=== PATIENT | male | born 2000 | race Caucasian/White ===

== ENCOUNTER 2023-03-29 21:55 | Emergency (ER) | payer OTHER, MEDICAID, SELFPAY ==
[2023-03-29 21:58] VITALS: BP 120/86; PULSE 103; RESP 16; TEMP 36.8; O2SAT 97; BMI 21.0
--- NOTE | 2023-03-29 22:29 | ED_ITS ---
HPI - Nausea/Vomiting/Diarrhea General Chief complaint: Nausea/Vomiting/Diarrhea Stated complaint: VOMITING Time Seen by Provider: 03/29/23 22:23 Source: patient Mode of arrival: ambulance History of Present Illness HPI Narrative: 22-year-old male with a history of substance abuse who is currently in a detox program and receiving injections of Sublocade presents for evaluation of nausea vomiting and constipation. He states he has been vomiting all day and has not had a bowel movement in a week. He was recently seen in [facility] for similar symptoms. He denies any chest pain or shortness of breath. He states he is not really passing gas. Related Data Home Medications Medication Instructions Recorded Confirmed buprenorphine 100 mg/0.5 mL 100 mg subcut .monthly 03/29/23 03/29/23 solution,exten.rel.subcutaneous syringe (Sublocade) Allergies Allergy/AdvReac Type Severity Reaction Status Date / Time amoxicillin Allergy Unknown Verified 03/29/23 22:01 Review of Systems ROS Status of ROS 10 or more systems reviewed and unremarkable except as noted in history and below PFSH PFS Social History Smoking status: Current every day smoker Exam Narrative Exam Narrative: Nurses note and vital signs reviewed and patient is not hypoxic, no active vomiting He is mildly tachycardic with a pulse of 103 General: The patient appears well and in no apparent distress. Patient is resting comfortably on cart. Skin: Warm, dry, no pallor noted. There is no rash noted. Head: Normocephalic, atraumatic Eye: Normal conjunctiva, no drainage, EOMI. PERRL, no scleral icterus Ears, Nose, Mouth, and Throat: oral mucosa is dry Cardiovascular: Regular Rate and Rhythm pulse is 90 and regular on exam Respiratory: Patient is in no distress, no accessory muscle use, lungs are clear to auscultation, no wheezing, rales or rhonchi Back: non-tender, no CVA tenderness bilaterally to percussion. GI: Soft, flat, non-distended, Normal bowel sounds, no tenderness to palpation, no masses appreciated. No rebound, guarding, or rigidity noted. Musculoskeletal: The patient has no evidence of calf tenderness, no pitting edema, symmetrical pulses noted bilaterally Neurological: A&O x4, normal speech Psychiatric: Cooperative Constitutional Vital Signs, click to edit/add: Last Vital Signs Temp 98.3 F 03/29/23 21:58 Pulse 103 H 03/29/23 21:58 Resp 16 03/29/23 21:58 BP 120/86 03/29/23 21:58 Pulse Ox 97 03/29/23 21:58 O2 Del Method Room Air 03/29/23 21:58 Course Vital Signs Vital signs: Vital Signs Temperature 98.3 F 03/29/23 21:58 Pulse Rate 103 H 03/29/23 21:58 Respiratory Rate 16 03/29/23 21:58 Blood Pressure 120/86 03/29/23 21:58 Pulse Oximetry 97 03/29/23 21:58 Oxygen Delivery Method Room Air 03/29/23 21:58 Temperature 98.3 F 03/29/23 21:58 Pulse Rate 103 H 03/29/23 21:58 Respiratory Rate 16 03/29/23 21:58 Blood Pressure 120/86 03/29/23 21:58 Pulse Oximetry 97 03/29/23 21:58 Oxygen Delivery Method Room Air 03/29/23 21:58 MDM - Nausea/Vomiting/Diarrhea MDM Narrative Medical decision making narrative: 23-year-old male who is currently in a local rehab facility presents for evaluation of nausea and vomiting and constipation. He states he has not had a bowel movement in 5 days. Upon arrival he immediately requested something to drink. He was given Gatorade and did have 2 additional episodes of vomiting. An IV was placed and he was medicated with a liter of normal saline and Zofran and Pepcid. He had one additional episode of vomiting after that and was remedicated with an additional liter of D5 LR and additional Zofran. Routine labs are reviewed. He has a normal white count and hemoglobin. He has normal electrolytes. His chloride is mildly low at 91 and CO2 is elevated at 85.6. He has a normal BUN/creatinine. There is no sign of any kidney failure at this time. X-ray of the chest and abdomen and pelvis was ordered due to the complaint of abdominal pain with constipation. It shows a nonspecific bowel gas pattern. The patient has been hemodynamically stable in emergency department and will be discharged home with a prescription for Zofran to use as needed for ongoing nausea or vomiting. I will also prescribe him Colace for the constipation. Lab Data Labs: Lab Results 03/29/23 Range/Units 22:30 WBC 7.7 (4.0-11.0) 10^3/uL RBC 5.38 (4.70-6.10) 10^6/uL Hgb 16.8 (14.0-18.0) g/dL Hct 47.2 (42.0-54.0) % MCV 87.7 (80.0-94.0) fL MCH 31.2 (25.9-34.0) pg MCHC 35.6 H (29.9-35.2) g/dL RDW 12.3 (11.0-15.0) % Plt Count 221 (150-450) 10^3/uL MPV 8.9 L (9.5-13.5) fL Neut % (Auto) 77.1 H (43.0-75.0) % Lymph % (Auto) 16.8 L (20.5-60.0) % [place] % (Auto) 5.7 (1.7-12.0) % Eos % (Auto) 0.0 L (0.9-7.0) % Baso % (Auto) 0.3 (0.2-2.0) % Neut # (Auto) 5.9 (1.4-6.5) 10^3/uL Lymph # (Auto) 1.3 (1.2-3.8) 10^3/uL [place] # (Auto) 0.4 (0.3-0.8) 10^3/uL Eos # (Auto) 0.0 (0.0-0.7) 10^3/uL Baso # (Auto) 0.0 (0.0-0.1) 10^3/uL Abs Immat Gran (auto) 0.01 (0.00-0.03) 10^3/uL Imm/Tot Granulo (auto) 0.1 (0.0-0.5) % Sodium 131 L (136-145) mmol/L Potassium 3.4 L (3.5-5.1) mmol/L Chloride 91 L (98-107) mmol/L Carbon Dioxide 35.6 H (21.0-32.0) mmol/L Anion Gap 7.8 BUN 14.0 (7.0-18.0) mg/dL Creatinine 0.77 (0.70-1.30) mg/dL Est GFR ( Amer) >60 (>=60) Est GFR (Non-Af Amer) >60 (>=60) BUN/Creatinine Ratio 18.2 Glucose 91 (74-106) mg/dL Lactate 0.9 (0.4-2.0) mmol/L Calcium 10.3 H (8.5-10.1) mg/dL Total Bilirubin 0.7 (0.2-1.0) mg/dL AST 36 (15-37) U/L ALT 24 (16-63) U/L Alkaline Phosphatase 105 (46-116) U/L Total Protein 9.0 H (6.4-8.2) g/dL Albumin 5.1 H (3.4-5.0) g/dL Globulin 3.9 g/dL Albumin/Globulin Ratio 1.3 Lipase 12.0 L (16.0-77.0) U/L Discharge Plan Discharge Chief Complaint: Nausea/Vomiting/Diarrhea Clinical Impression: Nausea & vomiting, Constipation Time of Disposition Decision: 00:51 Condition: Good Prescriptions / Home Meds: No Action Sublocade 100 mg/0.5 mL solution, extended rel syringe 100 mg subcut .monthly Instructions: Constipation (ED), Acute Nausea and Vomiting (DC) Stand Alone Forms: Portal Instructions Referrals: Physician,Non-Staff, MD [Primary Care Provider] - 1 week
[2023-03-29 22:41] LABS: Basophils Percent Auto 0.3 % (0.2-2.0); Hematocrit 47.2 % (42.0-54.0); Hemoglobin 16.8 g/dL (14.0-18.0); Immature Granulocytes Abs Auto 0.01 10^3/uL (0.00-0.03); Immature Granulocytes Pct Auto 0.1 % (0.0-0.5); Lymphocytes Absolute Auto 1.3 10^3/uL (1.2-3.8); Lymphocytes Percent Auto 16.8 % (20.5-60.0); Mean Corpuscular HGB Conc 35.6 g/dL (29.9-35.2); Mean Corpuscular Hemoglobin 31.2 pg (25.9-34.0); Mean Corpuscular Volume 87.7 fL (80.0-94.0); Mean Platelet Volume 8.9 fL (9.5-13.5); Monocytes Absolute Auto 0.4 10^3/uL (0.3-0.8); Monocytes Percent Auto 5.7 % (1.7-12.0); Neutrophils Absolute Auto 5.9 10^3/uL (1.4-6.5); Neutrophils Percent Auto 77.1 % (43.0-75.0); Platelet Count 221 10^3/uL (150-450); Red Blood Count 5.38 10^6/uL (4.70-6.10); Red Cell Distribution Width 12.3 % (11.0-15.0); White Blood Count 7.7 10^3/uL (4.0-11.0)
[2023-03-29 22:56] LABS: Alanine Aminotransferase 24 U/L (16-63); Albumin Globulin Ratio 1.3; Albumin Level 5.1 g/dL (3.4-5.0); Alkaline Phosphatase 105 U/L (46-116); Anion Gap 7.8; Aspartate Amino Transferase 36 U/L (15-37); BUN Creatinine Ratio 18.2; Bilirubin Total 0.7 mg/dL (0.2-1.0); Calcium 10.3 mg/dL (8.5-10.1); Carbon Dioxide 35.6 mmol/L (21.0-32.0); Chloride 91 mmol/L (98-107); Estimated GFR (African America >60 (>=60); Estimated GFR (Non-African Ame >60 (>=60); Globulin 3.9 g/dL; Glucose 91 mg/dL (74-106); Potassium 3.4 mmol/L (3.5-5.1); Sodium 131 mmol/L (136-145)
[2023-03-29 22:59] LABS: Lactate/Lactic Acid 0.9 mmol/L (0.4-2.0)
[2023-03-29] MEDS: 0.9 % SODIUM CHLORIDE 1,000 ML 1000 ML IV (23:13)
[2023-03-29] MEDS: ONDANSETRON PF 4 MG/2 ML VIAL IV (23:13)
[2023-03-29] MEDS: FAMOTIDINE/PF 20 MG/2 ML VIAL IV (23:13)
--- NOTE | 2023-03-29 23:14 | XR_ITS ---
The [address] [address] Patient Name: SHASHA CHANDLER MRN: [id number] date: 2000 Sex: M Assigned Patient Location: ER Current Patient Location: ER Accession/Order Number: [id number] Exam Date: 03/29/2023 23:25 Report Date: 03/30/2023 00:16 At the request of: VIKAS MARKER Procedure: XR acute abdomen series EXAMINATION: XR acute abdomen series HISTORY: N/V ; nausea, vomiting, abdominal pain COMPARISON: No relevant comparison available. FINDINGS: LUNGS: No infiltrate, pneumothorax, or pleural effusion. MEDIASTINUM: No abnormal widening. BOWEL GAS PATTERN: Non-obstructed. No abnormal dilation or suspicious fluid levels. FREE AIR: None. CALCIFICATIONS: None significant. BONES: No fracture or visible bone lesion. OTHER: Negative. XR/XR acute abdomen series IMPRESSION: 1. No acute or suspicious findings to account for patient's symptoms. Electronically authenticated by: MACI YANES Date: 03/30/2023 00:16
[2023-03-30] MEDS: ONDANSETRON PF 4 MG/2 ML VIAL IV (01:08)
== END 2023-03-30 01:15 | disposition home or self-care (01) ==
PROVIDERS: Emergency Provider Emergency Medicine
DX: K59.00 Constipation, unspecified (principal); R11.2 Nausea with vomiting, unspecified; F17.210 Nicotine dependence, cigarettes, uncomplicated; F19.11 Other psychoactive substance abuse, in remission
CPT/HCPCS: 36415; 74022; 80053; 83605; 83690; 85025; 96361; 96374; 96375; 96376; 99284